=== PATIENT | female | born 1955 | race Caucasian/White ===

== ENCOUNTER → 2022-01-14 | Outpatient (REF) | payer MEDICARE, OTHER ==
[2022-01-14 16:38] LABS: BASO # 0.1 10^3/uL (0.0-0.2); EOS # 0.2 10^3/uL (0.0-0.5); EOS % 2.1 % (0.0-3.0); HEMATOCRIT 40.8 % (36.0-47.0); HEMOGLOBIN 13.6 g/dl (12.0-15.5); LYMPH # 2.7 10^3/uL (1.5-5.0); LYMPH % 38.6 % (24.0-44.0); MEAN CORPUSCULAR HEMOGLOBIN 34.6 pg (27.0-33.0); MEAN CORPUSCULAR HGB CONC 33.3 g/dl (32.0-36.5); MEAN CORPUSCULAR VOLUME 103.8 fl (80.0-96.0); MONO # 0.4 10^3/uL (0.0-0.8); MONO % 5.4 % (2.0-8.0); NEUTROPHILS # 3.7 10^3/uL (1.5-8.5); NEUTROPHILS % 52.3 % (36.0-66.0); PLATELET COUNT, AUTOMATED 191 10^3/uL (150-450); RED BLOOD COUNT 3.93 10^6/uL (4.00-5.40)
[2022-01-14 16:44] LABS: AMORPHOUS SEDIMENT SMALL (NEGATIVE); APPEARANCE, URINE HAZY (CLEAR); BACTERIA, URINE AUTO NEGATIVE (NEGATIVE); BILIRUBIN, URINE AUTO NEGATIVE (NEGATIVE); BLOOD, URINE BLOOD NEGATIVE (NEGATIVE); COLOR, URINE YELLOW (YELLOW); GLUCOSE, URINE (UA) AUTO NEGATIVE (NEGATIVE); KETONE, URINE AUTO NEGATIVE (NEGATIVE); LEUKOCYTE ESTERASE, URINE AUTO NEGATIVE (NEGATIVE); MUCUS, URINE SMALL (NEGATIVE); NITRITE, URINE AUTO NEGATIVE (NEGATIVE); PROTEIN, URINE AUTO NEGATIVE (NEGATIVE); RBC, URINE AUTO 0 /HPF (0-3); SPECIFIC GRAVITY URINE AUTO 1.023 (1.002-1.035); SQUAMOUS EPITHELIAL CELL UR AU 1 /HPF (0-6); UROBILINOGEN, URINE AUTO 0.2 mg/dL (0.0-2.0); WBC, URINE AUTO 1 /HPF (0-3)
[2022-01-14 17:05] LABS: TOTAL PROTEIN,RANDOM URINE 14.7 MG/DL (0.0-12.0)
[2022-01-14 17:07] LABS: ALBUMIN 4.2 GM/DL (3.2-5.2); ALT/SGPT 35 U/L (12-78); BILIRUBIN,TOTAL 0.3 MG/DL (0.2-1.0); BLOOD UREA NITROGEN 25 MG/DL (7-18); C REACTIVE PROTEIN QUANTITATIV 1.11 MG/DL (0.00-0.30); CALCIUM LEVEL 10.2 MG/DL (8.8-10.2); CARBON DIOXIDE LEVEL 25 MEQ/L (21-32); CHLORIDE LEVEL 107 MEQ/L (98-107); COMPLEMENT C3 145 MG/DL (90-180); COMPLEMENT C4 26 MG/DL (10-40); CREATININE FOR GFR 0.95 MG/DL (0.55-1.30); GLOMERULAR FILTRATION RATE > 60.0 (>45); GLUCOSE, FASTING 157 MG/DL (70-100); POTASSIUM SERUM 4.1 MEQ/L (3.5-5.1); SODIUM LEVEL 140 MEQ/L (136-145); TOTAL PROTEIN 7.5 GM/DL (6.4-8.2)
[2022-01-14 17:55] LABS: ERYTHROCYTE SEDIMENTATION RATE 27 mm/hr (0-30)
== END ==
LOC: M SFHCRHEU 15:09
PROVIDERS: ATTEND Internal Medicine Rheumatology
DX: M35.3 Polymyalgia rheumatica (principal); H04.123 Dry eye syndrome of bilateral lacrimal glands; R76.8 Other specified abnormal immunological findings in serum

== ENCOUNTER → 2022-08-06 | Outpatient (REF) | payer MEDICARE, OTHER | LOC: M SFHCDERM 17:36 | PROVIDERS: ATTEND Nurse Practitioner Family | DX: L82.1 Other seborrheic keratosis (principal) ==

== ENCOUNTER → 2022-09-03 | Outpatient (REF) | payer MEDICARE, OTHER ==
[2022-09-08 02:08] LABS: CALPROTECTIN STOOL 52 ug/g (0-120); PANCREATIC ELASTASE STOOL 464 (>200)
== END ==
LOC: M LAB REF 13:53
PROVIDERS: ATTEND Internal Medicine Gastroenterology
DX: Z12.11 Encounter for screening for malignant neoplasm of colon (principal)

== ENCOUNTER → 2022-12-31 | Outpatient (CLI) | payer MEDICARE, BC, OTHER ==
[~2022-12-31] MED LIST: ACET650T61 PO; ALLE10TA28 PO; B-12100010 PO; BAYE81TA10 PO; D3 M1CAP2 PO; FLEC25TA PO; FOLI1TAB11 PO; GNP1000C11 PO; METO50TA7 PO; NORT10CA2 PO; PRAM0.252 PO; SYST1SOL OU; VITA500064 PO
== END ==
LOC: M LABSMTC 10:46
PROVIDERS: ATTEND Anesthesiology
DX: Z11.52 Encounter for screening for COVID-19 (principal)

== ENCOUNTER 2023-01-05 12:32 | Day surgery (SDC) | payer MEDICARE, BC, OTHER ==
[~2023-01-05] VITALS: Ht 162.6 cm; Wt 87.0 kg
[~2023-01-05 12:32] MED LIST changes: +NS 1,000 ML IV ONE
[2023-01-05] MEDS ORDERED: propofoL 200 MG/20 ML VIAL As Ordered ONE (14:46)
[2023-01-05] MEDS ORDERED: LIDOCAINE 2% 100MG/5ML SDV (FOR ANES.) As Ordered ONE (14:46)
[2023-01-05 15:35] VITALS: BP 141/68
== END 2023-01-05 15:42 | disposition home or self-care (01) ==
LOC: M OPP 12:32
PROVIDERS: ATTEND Internal Medicine Gastroenterology
DX: C18.0 Malignant neoplasm of cecum (principal); K58.0 Irritable bowel syndrome with diarrhea; K64.0 First degree hemorrhoids; K57.30 Diverticulosis of large intestine without perforation or abscess without bleeding

== ENCOUNTER → 2023-02-08 | Outpatient (CLI) | payer MEDICARE, BC, OTHER ==
[~2023-02-08] MED LIST changes: +ATOR1TAB21 PO; -NS 1,000 ML IV ONE; -VITA500064 PO; +VITA500065 PO
== END ==
LOC: M LAB 16:14
PROVIDERS: ATTEND Surgery
DX: C18.0 Malignant neoplasm of cecum (principal)

== ENCOUNTER → 2023-02-14 | Outpatient (CLI) | payer MEDICARE, BC, OTHER ==
[~2023-02-14] MED LIST changes: -ATOR1TAB21 PO
[2023-02-14 13:57] LABS: GLOMERULAR FILTRATION RATE 58.5 (>45)
== END ==
LOC: M LAB 12:45
PROVIDERS: ATTEND Surgery
DX: Z01.818 Encounter for other preprocedural examination (principal); Z79.899 Other long term (current) drug therapy

== ENCOUNTER → 2023-02-16 | Outpatient (CLI) | payer MEDICARE, BC, OTHER ==
[~2023-02-16] MED LIST changes: +GASTROGRAFIN SOLUTION 30ML As Ordered ONE; +ISOVUE-370 76% 100ML VIAL As Ordered ONE
== END ==
LOC: M RAD 12:08
PROVIDERS: ATTEND Surgery
DX: K63.89 Other specified diseases of intestine (principal); Z90.49 Acquired absence of other specified parts of digestive tract; Z90.710 Acquired absence of both cervix and uterus
CPT/HCPCS: 74177; Q9963; Q9967

== ENCOUNTER 2023-02-24 06:14 | Inpatient (IN) | payer MEDICARE, BC, OTHER ==
[~2023-02-24] VITALS: Ht 160 cm; Wt 87.1 kg
[2023-02-24] VITALS (8 sets, daily range): BP systolic 111–150; BP diastolic 62–77
[~2023-02-24 06:14] MED LIST changes: +ATOR1TAB21 PO; +ERTAPENEM SODIUM 1 GM in NS MINI-BAG PLUS 50 ML IV ONE; -GASTROGRAFIN SOLUTION 30ML As Ordered ONE; -ISOVUE-370 76% 100ML VIAL As Ordered ONE
[2023-02-24] MEDS ORDERED: LR 1,000 ML IV SCH ×2 (06:40→09:55)
[2023-02-24] MEDS ORDERED: METR-265 PO (06:47)
[2023-02-24] MEDS ORDERED: SODI177S2 (06:47)
[2023-02-24] MEDS ORDERED: SUGAMMADEX SODIUM 500 MG/5 ML VIAL (BRIDION) As Ordered ONE (06:55)
[2023-02-24] MEDS ORDERED: LIDOCAINE 2% 100MG/5ML SDV (FOR ANES.) As Ordered ONE (06:55)
[2023-02-24] MEDS ORDERED: KETOROLAC 60MG 2ML VIAL As Ordered ONE (06:55)
[2023-02-24] MEDS ORDERED: ROCURONIUM BROMIDE 50MG/5ML VIAL As Ordered ONE ×2 (06:55→08:33)
[2023-02-24] MEDS ORDERED: propofoL 200 MG/20 ML VIAL As Ordered ONE (06:55)
[2023-02-24] MEDS ORDERED: ONDANSETRON 4MG 2ML VIAL As Ordered ONE (06:58)
[2023-02-24] MEDS ORDERED: fentaNYL 250 MCG/5 ML INJECTION As Ordered ONE (07:02)
[2023-02-24] MEDS ORDERED: MIDAZOLAM INJ 2MG/2ML VIAL As Ordered ONE (07:02)
[2023-02-24] MEDS: BUPIVACAINE/EPIN 0.25% 30ML VIAL As Ordered ONE ×2 (07:09→10:02)
[2023-02-24] MEDS ORDERED: ACETAMINOPHEN 1000MG 100ML IV BAG As Ordered ONE (07:57)
[2023-02-24] MEDS ORDERED: PHENYLephrine 500MCG 5ML (100MCG/ML) SYRINGE As Ordered ONE (07:59)
[2023-02-24] MEDS ORDERED: HYDROmorphone HCL 2MG/ML 1ML VIAL As Ordered ONE (09:07)
[2023-02-24] MEDS ORDERED: fentaNYL 100 MCG/2 ML INJECTION IV PRN (09:55)
[2023-02-24] MEDS ORDERED: ONDANSETRON 4MG 2ML VIAL IV PRN ×2 (09:55→10:15)
[2023-02-24] MEDS ORDERED: oxyCODONE 5MG TAB PO PRN (09:55)
[2023-02-24] MEDS ORDERED: HYDROMORPHONE HCL 0.5 MG/ 0.5 ML SYRINGE IV PRN (09:55)
[2023-02-24] MEDS ORDERED: MORPHINE 2 MG/ML 1ML VIAL IV PRN (10:15)
[2023-02-24] MEDS ORDERED: ACETAMINOPHEN TAB 650MG DOSE (2X325MG) PO PRN (10:15)
[2023-02-24] MEDS ORDERED: HOME MED LIST COMPLETE! XX SCH (12:35)
[2023-02-24] MEDS: PANTOPRAZOLE 40MG TAB (PROTONIX) PO SCH (12:36)
[2023-02-24] MEDS: NS 1,000 ML IV SCH ×2 (12:36→18:26)
[2023-02-24] MEDS: CIPROFLOXACIN 400 MG in IV 1 EA IV SCH (12:36)
[2023-02-24] MEDS: metroNIDAZOLE 500 MG in IV 1 EA IV SCH ×2 (13:48→21:49)
[2023-02-24] MEDS ORDERED: KETOROLAC 30 MG/ML 1ML VIAL IV PRN (16:00)
[2023-02-24] MEDS: POLYVINYL ALCOHOL OPHTH SOLN 15ML (LIQUITEARS) OU SCH (21:46)
[2023-02-24] MEDS: NORTRIPTYLINE 10 MG CAP PO SCH (21:46)
[2023-02-24] MEDS: PRAMIPEXOLE 0.25 MG TAB PO SCH (21:46)
[2023-02-24] MEDS: METOPROLOL TART 50 MG TAB PO SCH (21:47)
[2023-02-24] MEDS: FLECAINIDE 50MG TABLET PO SCH (21:47)
[2023-02-24] MEDS: SENOKOT S TAB PO SCH (21:47)
[2023-02-24] MEDS: NORCO, ANEXSIA 5/325MG TABLET (HYDROcodone/ACETAMINOPHEN) PO PRN (21:49)
[2023-02-25] MEDS: CIPROFLOXACIN 400 MG in IV 1 EA IV SCH ×2 (01:13→13:52)
[2023-02-25] MEDS: NS 1,000 ML IV SCH ×3 (01:14→17:42)
[2023-02-25 02:00] VITALS: BP 109/61
[2023-02-25] MEDS: metroNIDAZOLE 500 MG in IV 1 EA IV SCH ×3 (05:28→22:09)
[2023-02-25] MEDS: NORCO, ANEXSIA 5/325MG TABLET (HYDROcodone/ACETAMINOPHEN) PO PRN ×2 (05:28→14:11)
[2023-02-25 06:00] VITALS: BP 110/64
[2023-02-25 06:29] LABS: HEMATOCRIT 30.7 % (36.0-47.0); HEMOGLOBIN 9.9 g/dl (12.0-15.5); MEAN CORPUSCULAR HEMOGLOBIN 33.3 pg (27.0-33.0); MEAN CORPUSCULAR HGB CONC 32.2 g/dl (32.0-36.5); MEAN CORPUSCULAR VOLUME 103.4 fl (80.0-96.0); PLATELET COUNT, AUTOMATED 156 10^3/uL (150-450); RED BLOOD COUNT 2.97 10^6/uL (4.00-5.40); WHITE BLOOD COUNT 11.4 10^3/uL (4.0-10.0)
[2023-02-25 06:57] LABS: CREATININE FOR GFR 0.99 MG/DL (0.55-1.30); GLOMERULAR FILTRATION RATE 59.2 (>45); POTASSIUM SERUM 4.1 MMOL/L (3.5-5.1)
[2023-02-25] MEDS: SENOKOT S TAB PO SCH ×2 (09:21→20:13)
[2023-02-25] MEDS: POLYVINYL ALCOHOL OPHTH SOLN 15ML (LIQUITEARS) OU SCH ×2 (09:21→20:19)
[2023-02-25] MEDS: ATORVASTATIN 20 MG TAB PO SCH (09:22)
[2023-02-25] MEDS: METOPROLOL TART 50 MG TAB PO SCH ×2 (09:22→20:18)
[2023-02-25] MEDS: PANTOPRAZOLE 40MG TAB (PROTONIX) PO SCH (09:22)
[2023-02-25] MEDS: FLECAINIDE 50MG TABLET PO SCH ×2 (09:22→20:13)
[2023-02-25] MEDS: ENOXAPARIN 30MG/0.3ML SYRINGE (J1650 PER 10MG) SC SCH (09:23)
[2023-02-25 14:00] VITALS: BP 111/75
[2023-02-25] MEDS: PRAMIPEXOLE 0.25 MG TAB PO SCH (20:13)
[2023-02-25] MEDS: NORTRIPTYLINE 10 MG CAP PO SCH (20:13)
[2023-02-25 20:46] VITALS: BP 152/82
[2023-02-26] MEDS: CIPROFLOXACIN 400 MG in IV 1 EA IV SCH (01:42)
[2023-02-26] MEDS: NORCO, ANEXSIA 5/325MG TABLET (HYDROcodone/ACETAMINOPHEN) PO PRN (01:46)
[2023-02-26] MEDS: NS 1,000 ML IV SCH (02:15)
[2023-02-26] MEDS: metroNIDAZOLE 500 MG in IV 1 EA IV SCH (05:39)
[2023-02-26 05:54] VITALS: BP 130/95
[2023-02-26 07:15] LABS: HEMATOCRIT 28.4 % (36.0-47.0); HEMOGLOBIN 9.1 g/dl (12.0-15.5); MEAN CORPUSCULAR HEMOGLOBIN 33.6 pg (27.0-33.0); MEAN CORPUSCULAR VOLUME 104.8 fl (80.0-96.0); PLATELET COUNT, AUTOMATED 130 10^3/uL (150-450); RED BLOOD COUNT 2.71 10^6/uL (4.00-5.40); WHITE BLOOD COUNT 6.9 10^3/uL (4.0-10.0)
[2023-02-26 07:41] LABS: BLOOD UREA NITROGEN 10 MG/DL (9-23); CARBON DIOXIDE LEVEL 24 MMOL/L (20-31); CHLORIDE LEVEL 109 MMOL/L (98-107); CREATININE FOR GFR 0.86 MG/DL (0.55-1.30); GLOMERULAR FILTRATION RATE > 60.0 (>45); GLUCOSE, FASTING 95 MG/DL (74-106); POTASSIUM SERUM 3.8 MMOL/L (3.5-5.1); SODIUM LEVEL 142 MMOL/L (136-145)
[2023-02-26] MEDS: SENOKOT S TAB PO SCH ×2 (08:29→21:00)
[2023-02-26] MEDS: FLECAINIDE 50MG TABLET PO SCH ×2 (08:30→21:41)
[2023-02-26] MEDS: ATORVASTATIN 20 MG TAB PO SCH (08:30)
[2023-02-26] MEDS: PANTOPRAZOLE 40MG TAB (PROTONIX) PO SCH (08:30)
[2023-02-26] MEDS: METOPROLOL TART 50 MG TAB PO SCH ×2 (08:30→21:42)
[2023-02-26] MEDS: POLYVINYL ALCOHOL OPHTH SOLN 15ML (LIQUITEARS) OU SCH ×2 (08:31→21:42)
[2023-02-26] MEDS: ENOXAPARIN 30MG/0.3ML SYRINGE (J1650 PER 10MG) SC SCH (08:31)
[2023-02-26 14:00] VITALS: BP 155/80
[2023-02-26 20:11] VITALS: BP 152/80
[2023-02-26] MEDS: PRAMIPEXOLE 0.25 MG TAB PO SCH (21:42)
[2023-02-26] MEDS: NORTRIPTYLINE 10 MG CAP PO SCH (21:42)
[2023-02-27 05:45] LABS: HEMATOCRIT 27.6 % (36.0-47.0); HEMOGLOBIN 9.1 g/dl (12.0-15.5); PLATELET COUNT, AUTOMATED 140 10^3/uL (150-450); RED BLOOD COUNT 2.68 10^6/uL (4.00-5.40); WHITE BLOOD COUNT 6.8 10^3/uL (4.0-10.0)
[2023-02-27 05:57] LABS: BLOOD UREA NITROGEN 11 MG/DL (9-23); CALCIUM LEVEL 8.6 MG/DL (8.3-10.6); CARBON DIOXIDE LEVEL 26 MMOL/L (20-31); CHLORIDE LEVEL 108 MMOL/L (98-107); GLOMERULAR FILTRATION RATE > 60.0 (>45); GLUCOSE, FASTING 102 MG/DL (74-106); POTASSIUM SERUM 3.7 MMOL/L (3.5-5.1); SODIUM LEVEL 142 MMOL/L (136-145)
[2023-02-27 05:58] VITALS: BP 156/91
[2023-02-27] MEDS: SENOKOT S TAB PO SCH (07:33)
[2023-02-27] MEDS: ENOXAPARIN 30MG/0.3ML SYRINGE (J1650 PER 10MG) SC SCH (09:00)
[2023-02-27] MEDS: ATORVASTATIN 20 MG TAB PO SCH (09:37)
[2023-02-27] MEDS: PANTOPRAZOLE 40MG TAB (PROTONIX) PO SCH (09:37)
[2023-02-27] MEDS: FLECAINIDE 50MG TABLET PO SCH (09:37)
[2023-02-27 09:38] VITALS: BP 157/88
[2023-02-27] MEDS: POLYVINYL ALCOHOL OPHTH SOLN 15ML (LIQUITEARS) OU SCH (09:38)
[2023-02-27] MEDS: METOPROLOL TART 50 MG TAB PO SCH (09:38)
[2023-02-27] MEDS ORDERED: HYDR-3715 PO (11:01)
== END 2023-02-27 12:45 | disposition home or self-care (01) | DRG 331 ==
LOC: M OR 06:14 → M MS5PR 11:30
PROVIDERS: ADMIT Surgery; ATTEND Surgery
PROC: 8E0W4CZ Robotic Assisted Procedure of Trunk Region, Percutaneous Endoscopic Approach (ICD-10-PCS; 2023-02-24)
PROC: 0DTF4ZZ Resection of Right Large Intestine, Percutaneous Endoscopic Approach (ICD-10-PCS; principal; 2023-02-24 07:30)
DX: C18.0 Malignant neoplasm of cecum (principal); E78.5 Hyperlipidemia, unspecified; R03.0 Elevated blood-pressure reading, without diagnosis of hypertension; I48.91 Unspecified atrial fibrillation; Z90.49 Acquired absence of other specified parts of digestive tract; Z79.82 Long term (current) use of aspirin; Z79.899 Other long term (current) drug therapy; Z88.0 Allergy status to penicillin

== ENCOUNTER 2023-07-25 06:28 | Day surgery (SDC) | payer MEDICARE, BC, OTHER ==
[~2023-07-25] VITALS: Ht 160 cm; Wt 91.2 kg
[~2023-07-25 06:28] MED LIST changes: -ERTAPENEM SODIUM 1 GM in NS MINI-BAG PLUS 50 ML IV ONE; +HYDR-3715 PO; +METR-265 PO; +SODI177S2; +VITMTA PO; +[UNRECOGNIZED DRUG - CODE] OP
[2023-07-25] MEDS ORDERED: LIDOCAINE 1% SDV 5ML VIAL As Ordered ONE (06:41)
[2023-07-25] MEDS ORDERED: FLURBIPROFEN 0.03% OPHTH SOLN 2.5 ML OS SCH (06:55)
[2023-07-25] MEDS ORDERED: CYCLOPENTOLATE 1% OPHTH SOLN 2ML BTL OS SCH (06:55)
[2023-07-25] MEDS ORDERED: PHENYLEPHRINE 2.5% OPHTH SOL 2ML OS SCH (06:55)
[2023-07-25] MEDS ORDERED: LR 1,000 ML IV SCH (07:00)
[2023-07-25] MEDS ORDERED: MIDAZOLAM INJ 2MG/2ML VIAL As Ordered ONE (07:07)
[2023-07-25] MEDS ORDERED: fentaNYL 100 MCG/2 ML INJECTION As Ordered ONE (07:07)
[2023-07-25] MEDS: TETRACAINE 0.5% OPHTH SOLN 4ML OS SCH ×2 (07:15→07:59)
[2023-07-25] MEDS ORDERED: hydrALAZINE 20MG/ML 1ML VIAL As Ordered ONE (08:08)
[2023-07-25 08:38] VITALS: BP 116/63; TEMP 97.1; O2SAT 96
== END 2023-07-25 09:30 | disposition home or self-care (01) ==
LOC: M SDC 06:28
PROVIDERS: ATTEND Ophthalmology
DX: H25.12 Age-related nuclear cataract, left eye (principal); I48.91 Unspecified atrial fibrillation; I10 Essential (primary) hypertension; Z88.0 Allergy status to penicillin; Z88.1 Allergy status to other antibiotic agents; Z88.8 Allergy status to other drugs, medicaments and biological substances; Z88.2 Allergy status to sulfonamides; Z91.013 Allergy to seafood; Z79.899 Other long term (current) drug therapy
CPT/HCPCS: 66984; 92015; J0360; J2250; J3010; V2788

== ENCOUNTER → 2023-12-07 | Outpatient (CLI) | payer MEDICARE, BC, OTHER ==
[~2023-12-07] MED LIST changes: +MV-M1TAB13 PO
[2023-12-09 23:16] LABS: CYCLIC CITRULLINATED PEPTIDE 1 units (0-19); TISSUE TRANSGLUTAMINASE IgA <2 U/mL (0-3)
== END ==
LOC: M LAB 14:25
PROVIDERS: ATTEND Internal Medicine Gastroenterology
DX: R19.7 Diarrhea, unspecified (principal)

== ENCOUNTER → 2024-01-02 | Outpatient (CLI) | payer MEDICARE, BC ==
[~2024-01-02] MED LIST changes: +CHOL4POW26 PO; +LOPE1CAP5 PO; +OMEP40CA4 PO; -[UNRECOGNIZED DRUG - CODE] OP; +[UNRECOGNIZED DRUG - CODE] OU
== END ==
LOC: M PLAIMG 08:15
PROVIDERS: ATTEND Physician Assistant
DX: R10.9 Unspecified abdominal pain (principal); Z85.038 Personal history of other malignant neoplasm of large intestine; Z90.49 Acquired absence of other specified parts of digestive tract; K43.9 Ventral hernia without obstruction or gangrene; K76.0 Fatty (change of) liver, not elsewhere classified

== ENCOUNTER 2024-01-11 11:04 | Day surgery (SDC) | payer MEDICARE, BC ==
[~2024-01-11] VITALS: Ht 160 cm; Wt 89.8 kg
[2024-01-11] MEDS: NS 1,000 ML IV ONE (11:40)
[2024-01-11] MEDS ORDERED: METOPROLOL 5 MG/5 ML VIAL As Ordered ONE (12:27)
[2024-01-11] MEDS ORDERED: propofoL 200 MG/20 ML VIAL As Ordered ONE (12:35)
[2024-01-11 12:42] VITALS: TEMP 97.7
[2024-01-11 13:10] VITALS: BP 162/76; O2SAT 96
== END 2024-01-11 13:11 | disposition home or self-care (01) ==
LOC: M OPP 11:04
PROVIDERS: ATTEND Surgery
DX: Z85.038 Personal history of other malignant neoplasm of large intestine (principal); Z08 Encounter for follow-up examination after completed treatment for malignant neoplasm; K64.0 First degree hemorrhoids; K57.30 Diverticulosis of large intestine without perforation or abscess without bleeding; I48.91 Unspecified atrial fibrillation; Z90.49 Acquired absence of other specified parts of digestive tract; Z79.02 Long term (current) use of antithrombotics/antiplatelets; Z79.1 Long term (current) use of non-steroidal anti-inflammatories (NSAID); Z79.82 Long term (current) use of aspirin; Z79.899 Other long term (current) drug therapy; Z88.0 Allergy status to penicillin; Z88.1 Allergy status to other antibiotic agents; Z88.2 Allergy status to sulfonamides; Z88.8 Allergy status to other drugs, medicaments and biological substances

== ENCOUNTER 2025-02-20 08:31 | Day surgery (SDC) | payer MEDICARE, BC ==
[~2025-02-20] VITALS: Ht 160 cm; Wt 92.4 kg
[~2025-02-20 08:31] MED LIST changes: +ELIQ5TAB4 PO; +LOSA100T46 PO; +NEUR600T PO
[2025-02-20] MEDS ORDERED: propofoL 200 MG/20 ML VIAL As Ordered ONE (09:25)
[2025-02-20 09:32] VITALS: TEMP 97.6
[2025-02-20 09:45] VITALS: BP 116/66; O2SAT 96
== END 2025-02-20 10:00 | disposition home or self-care (01) ==
LOC: M OPP 08:31
PROVIDERS: ATTEND Surgery
DX: Z12.11 Encounter for screening for malignant neoplasm of colon (principal); K57.30 Diverticulosis of large intestine without perforation or abscess without bleeding; K64.0 First degree hemorrhoids; Z85.038 Personal history of other malignant neoplasm of large intestine; I48.91 Unspecified atrial fibrillation; I10 Essential (primary) hypertension; E78.00 Pure hypercholesterolemia, unspecified; R73.03 Prediabetes; Z85.828 Personal history of other malignant neoplasm of skin; Z79.899 Other long term (current) drug therapy; Z79.82 Long term (current) use of aspirin; Z90.710 Acquired absence of both cervix and uterus; Z90.49 Acquired absence of other specified parts of digestive tract; Z88.8 Allergy status to other drugs, medicaments and biological substances; Z88.0 Allergy status to penicillin; Z88.1 Allergy status to other antibiotic agents; Z91.013 Allergy to seafood; Z87.891 Personal history of nicotine dependence